=== PATIENT | male | born 1995 | race Caucasian/White ===

== ENCOUNTER 2023-04-27 14:16 | Emergency (ER) | payer OTHER ==
[~2023-04-27] VITALS: Ht 170.2 cm; Wt 82.0 kg
[2023-04-27 14:21] VITALS: O2SAT 100
[2023-04-27] MEDS ORDERED: KETOROLAC 30MG/ML VIAL IM ONE (15:00)
[2023-04-27] MEDS ORDERED: HYDROCODONE/ACETAMINOPHEN 5/325MG TABLET PO PRN (16:30)
[2023-04-27] MEDS ORDERED: MORPHINE SULFATE 4 MG/ML CPJ (NOT FOR IM USE) IV ONE (17:45)
[2023-04-27 17:48] LABS: BASOPHILS % 0.6 % (0.0-2.0); EOSINOPHILS % 3.3 % (0.0-5.0); HEMATOCRIT. 43.5 % (42.0-52.0); HEMOGLOBIN. 14.8 g/dL (14.0-18.0); LYMPHOCYTES % 20.5 % (20.0-50.0); MEAN CORPUSCULAR HGB CONC 33.9 g/dL (31.0-37.0); MEAN CORPUSCULAR VOLUME 85.6 fL (80.0-94.0); MEAN PLATELET VOLUME 8.1 fl (7.4-10.4); MONOCYTES % 7.8 % (2.0-8.0); NEUTROPHILS % 67.8 % (40.0-76.0); PLATELET 322 x1000/uL (130-400); RED BLOOD CELL COUNT 5.08 mill/uL (4.7-6.1); RED CELL DISTRIBUTION WIDTH 13.3 % (11.6-14.6); WHITE BLOOD COUNT 9.7 x1000/uL (4.5-11.0)
[2023-04-27 18:03] LABS: CALCIUM 8.9 mg/dL (8.5-10.1); CHLORIDE 108 mEq/L (98-107); INDEX HEMOLYSI 1 (1-3); INDEX ICTERIC 1 (1-4); INDEX LIPEMIC 1 (1-3); POTASSIUM 4.2 mEq/L (3.5-5.1); SODIUM 138 mEq/L (136-145)
[2023-04-27 18:07] LABS: CARBON DIOXIDE 29 mEq/L (21-32); CREATININE 0.6 mg/dL (0.6-1.3); GLUCOSE 88 mg/dL (70-105); UREA NITROGEN BLOOD 9 mg/dL (7-21)
[2023-04-27 19:25] VITALS: BP 122/85; PULSE 81; RESP 18; TEMP 97.7
== END 2023-04-27 19:27 | disposition left against medical advice (07) ==
LOC: ER 14:16 → EDBEDREQTM 18:42 → EDBEDREQ 18:42 → ER 19:27 → CANBEDREQ 04-29 19:39
DX: M54.59 Other low back pain (principal)
CPT/HCPCS: 99285; 72131; 80048; 85025; 36415; 72110; 96372; J1885